=== PATIENT | female | born 1970 | race American Indian/Alaskan Native ===

== ENCOUNTER 2017-05-21 09:22 | Outpatient (CLI) | payer BC ==
[2017-05-21 09:57] LABS: Hematocrit 41.9 % (30.3-42.9); Hemoglobin 13.6 gm/dl (10.1-14.3); Mean Corpuscular HGB Conc 33 % (30-34); Mean Corpuscular Hemoglobin 27 pg (28-32); Mean Corpuscular Volume 83 fl (79-97); Platelet Count 234 K/mm3 (140-440); Red Blood Count 5.08 M/mm3 (3.65-5.03); Red Cell Distribution Width 12.7 % (13.2-15.2); White Blood Count 7.2 K/mm3 (4.5-11.0)
[2017-05-21 10:20] LABS: Alanine Aminotransferase 26 units/L (7-56); Albumin 3.9 g/dL (3.9-5); Albumin/Globulin Ratio 1.2 %; Alkaline Phosphatase 76 units/L (35-129); Anion Gap 15 mmol/L; BUN/Creatinine Ratio 36; Blood Urea Nitrogen 18 mg/dL (7-17); Calcium 9.5 mg/dL (8.4-10.2); Carbon Dioxide 25 mmol/L (22-30); Chloride 104.4 mmol/L (98-107); Cholesterol 167 mg/dL (50-199); Glucose 94 mg/dL (65-100); HDL Cholesterol 61 mg/dL (40-59); LDL Cholesterol,Direct 95 mg/dL (50-130); Potassium 3.8 mmol/L (3.6-5.0); Sodium 141 mmol/L (137-145); Total Protein 7.2 g/dL (6.3-8.2); Triglycerides 56 mg/dL (2-149)
[2017-05-24 08:41] LABS: Vitamin D, 25-OH, Total 37 ng/mL (30-100)
== END 2017-05-21 09:23 | disposition home or self-care (01) ==
LOC: LAB 09:22
PROVIDERS: ATTEND Internal Medicine
DX: Z00.00 Encounter for general adult medical examination without abnormal findings (principal); E03.8 Other specified hypothyroidism; R79.89 Other specified abnormal findings of blood chemistry
CPT/HCPCS: 36415; 80053; 80061; 82306; 83036; 84439; 84443; 85027

== ENCOUNTER 2017-08-07 08:31 | Outpatient (CLI) | payer BC ==
--- NOTE | 2017-08-07 10:24 | Ultrasound Report ---
Pelvic ultrasound: Dysfunctional bleeding. Endovaginal and transabdominal imaging demonstrates an anteverted uterus measuring 3.4 x 4.1 x 6.7 cm. The myometrium is heterogeneous with a somewhat ill-defined area of hypoechogenicity posteriorly measuring 16 mm. The short segment of visualized endometrium has a thickness of 6.8 mm. The right ovary measures 19 mm and the left measures 20 mm. No free fluid noted. Impressions: 1. Small uterine fibroid. 2. Limited visualization of the endometrium with no obvious pathology.
== END 2017-08-07 08:32 | disposition home or self-care (01) ==
LOC: US 08:31
PROVIDERS: ATTEND Obstetrics & Gynecology
DX: Z01.419 Encounter for gynecological examination (general) (routine) without abnormal findings (principal); D25.9 Leiomyoma of uterus, unspecified
CPT/HCPCS: 76830; 76856

== ENCOUNTER 2018-11-09 08:07 | Outpatient (CLI) | payer BC ==
--- NOTE | 2018-11-09 10:41 | Ultrasound Report ---
ULTRASOUND PELVIC COMPLETE ULTRASOUND TRANSVAGINAL HISTORY: Intramural leiomyoma of uterus. COMPARISON: 08/07/17. TECHNIQUE: Transabdominal and transvaginal ultrasound with color doppler interrogation. FINDINGS: Uterus: The uterus is retroflexed. The uterus measures 6.5 x 3.3 x 2.9 cm. The previously described fibroid in the posterior wall the uterus has decreased slightly measuring 1.4 x 1.3 x 1.5 cm. This fibroid appears to have a small submucosal component but does not displace the endometrium. There is suggestion of an ill-defined hypoechoic fibroid in the anterior wall measuring 1.3 x 0.8 x 1.1 cm. This was not clearly seen on the previous exam. The small fibroid also appears to have a small submucosal component. Endometrium: 3.2 mm in thickness. No mass or fluid collection. Right ovary: 2.0 x 1.5 x 1.0 cm. No focal abnormality. Left ovary: 1.3 x 1.0 x 1.1 cm. No focal abnormality. No pelvic fluid or mass is identified. Normal color doppler interrogation. IMPRESSION: 2 small uterine fibroids are identified as outlined above. Mild endometrial atrophy. Normal ovaries.
== END 2018-11-09 08:08 | disposition home or self-care (01) ==
LOC: US 08:07
PROVIDERS: ATTEND Obstetrics & Gynecology
DX: D25.1 Intramural leiomyoma of uterus (principal); N85.8 Other specified noninflammatory disorders of uterus
CPT/HCPCS: 76830; 76856

== ENCOUNTER 2018-11-25 10:06 | Day surgery (SDC) | payer BC ==
--- NOTE | 2018-11-25 07:47 | Anesthesia Day of Surgery ---
<DALLIN MANN - Last Filed: 11/25/18 07:47> Anesthesia Day of Surgery - Day of Surgery Patient Examined: Yes Patient H&P Reviewed: Yes Patient is NPO: Yes Beta Blockers: No Cardiac Clearance: No Pulmonary Clearance: No <SOFYA ATKINSON - Last Filed: 11/25/18 11:02> Anesthesia Day of Surgery - Day of Surgery Patient Examined: Yes Patient H&P Reviewed: Yes Patient is NPO: Yes
--- NOTE | 2018-11-25 07:47 | Anesthesia Consultation ---
<DALLIN MANN - Last Filed: 11/25/18 07:47> Anesthesia Consult and Med Hx Date of service: 11/25/18 - Pre-Operative Health Status ASA Pre-Surgery Classification: ASA2 - Pulmonary Hx Smoking: Yes Hx Asthma: Yes <SOFYA ATKINSON - Last Filed: 11/25/18 11:02> Anesthesia Consult and Med Hx - Airway Anesthetic Teeth Evaluation: Good ROM Head & Neck: Adequate Mental/Hyoid Distance: Adequate Mallampati Class: Class II Intubation Access Assessment: Probably Good - Pulmonary Exam CTA: Yes - Cardiac Exam Cardiac Exam: RRR - Pre-Operative Health Status ASA Pre-Surgery Classification: ASA2 Proposed Anesthetic Plan: MAC - Pulmonary Hx Smoking: Yes (quit 2012) Hx Asthma: Yes (last inhaler use >3m ago) - Gastrointestinal Hx Gastroesophageal Reflux Disease: Yes (occ, controlled )
[~2018-11-25 10:06] MED LIST: NACL 0.9% 1000 ML 1,000 ML IV SCH
[2018-11-25] MEDS ORDERED: VERSED ONE (11:23)
[2018-11-25] MEDS ORDERED: DIPRIVAN 10 MG/ML IV ONE ×2 (11:23)
[2018-11-25] MEDS ORDERED: XYLOCAINE 1% 20 mL ONE (11:24)
--- NOTE | 2018-11-25 11:48 | Operative Report ---
Operative Report Operative Report: Colonoscopy Procedure Note with Snare polypectomy Date of procedure: 11/25/2018 Endoscopist: Abilio Coffman Pre-op diagnosis: Screening for colon cancer Post-op diagnosis: Small colon polyp, internal hemorrhoids Anesthesia: MAC Complications: No immediate complications Estimated blood loss: minimal Procedure: After consent was obtained, the patient was placed in the left lateral decubitus position. The olympus colonoscope was inserted into the patient's rectum under direct vision, and advanced to the cecum without difficulty. The patient tolerated the procedure well. The views of the mucosa were good. The quality of prep was good. The patient's vital signs were monitored continuously throughout the procedure. Findings: There was an ~3 mm sessile polyp in the transverse colon. The polyp was removed and retrieved with cold snare polypectomy. Internal hemorrhoids were visualized on retroflexion view. Impression: 1. Small colon polyp removed with cold snare polypectomy as above 2. Internal hemorrhoids Recommendations: -repeat colonoscopy for surveillance in 5 years -follow-up in GI clinic as scheduled
--- NOTE | 2018-11-25 11:49 | Post Operative Note ---
Date of procedure: 11/25/18 Pre-op diagnosis: screening colonoscopy Post-op diagnosis: same (small colon polyp) Findings: 1. small colon polyp 2. Internal hemorrhoids Procedure: colonoscopy with snare polypectomy Anesthesia: MAC Surgeon: JUSTINA MA Estimated blood loss: minimal Pathology: list (transverse colon polyp) Specimen disposition: to lab Condition: stable Disposition: same day
[2018-11-25 12:54] VITALS: BP 113/80
== END 2018-11-25 10:07 | disposition home or self-care (01) ==
LOC: GIO 10:06
PROVIDERS: ATTEND Internal Medicine Gastroenterology
DX: Z12.11 Encounter for screening for malignant neoplasm of colon (principal); K63.5 Polyp of colon; K64.8 Other hemorrhoids; J45.909 Unspecified asthma, uncomplicated; K21.9 Gastro-esophageal reflux disease without esophagitis; Z98.51 Tubal ligation status; Z98.890 Other specified postprocedural states; Z79.899 Other long term (current) drug therapy; Z87.891 Personal history of nicotine dependence
CPT/HCPCS: 45385; 88305; J2250; J2704; J7030

== ENCOUNTER 2019-08-25 07:53 | Outpatient (CLI) | payer BC ==
[2019-08-25 08:18] LABS: Hematocrit 39.3 % (30.3-42.9); Hemoglobin 12.8 gm/dl (10.1-14.3); Mean Corpuscular HGB Conc 33 % (30-34); Mean Corpuscular Volume 81 fl (79-97); Platelet Count 244 K/mm3 (140-440); Red Blood Count 4.84 M/mm3 (3.65-5.03); Red Cell Distribution Width 13.2 % (13.2-15.2)
[2019-08-25 08:46] LABS: Alanine Aminotransferase 13 units/L (7-56); Albumin 4.2 g/dL (3.9-5); BUN/Creatinine Ratio 38; Blood Urea Nitrogen 23 mg/dL (7-17); Calcium 9.9 mg/dL (8.4-10.2); Chol/HDL Ratio 3.76 %; HDL Cholesterol 52 mg/dL (40-59); Hemolysis Index 2; LDL Cholesterol,Direct 137 mg/dL (50-130)
[2019-08-25 08:50] LABS: Free T4 (Free Thyroxine) 1.04 ng/dL (0.76-1.46)
== END 2019-08-25 07:54 | disposition home or self-care (01) ==
LOC: LAB 07:53
PROVIDERS: ATTEND Internal Medicine
DX: Z00.00 Encounter for general adult medical examination without abnormal findings (principal); R73.03 Prediabetes
CPT/HCPCS: 36415; 80053; 80061; 82652; 83036; 84439; 84443; 85027

== ENCOUNTER 2020-02-01 20:15 | Emergency (ER) | payer BC ==
[2020-02-01 20:57] VITALS: BP 147/84
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
[2020-02-01] MEDS ORDERED: CYCLOBENZAPRINE 10 MG TAB PO ONE (23:50)
[2020-02-01] MEDS ORDERED: IBUPROFEN 600 MG TAB PO ONE (23:50)
[2020-02-01] MEDS ORDERED: ACETAMINOPHEN 500 MG TAB PO ONE (23:50)
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
== END 2020-02-02 00:40 | disposition home or self-care (01) ==
LOC: ED 20:15
DX: S39.012A Strain of muscle, fascia and tendon of lower back, initial encounter (principal); M62.830 Muscle spasm of back; J45.909 Unspecified asthma, uncomplicated; Z79.899 Other long term (current) drug therapy; V89.2XXA Person injured in unspecified motor-vehicle accident, traffic, initial encounter; Y93.89 Activity, other specified; Y92.410 Unspecified street and highway as the place of occurrence of the external cause; Y99.8 Other external cause status
CPT/HCPCS: 72100; 99283

== ENCOUNTER 2020-06-28 07:54 | Outpatient (CLI) | payer BC ==
--- NOTE | 2020-06-28 08:51 | Mammography Report ---
DIGITAL SCREENING MAMMOGRAM WITH CAD, 06/28/2020 CLINICAL INFORMATION / INDICATION: Routine screening mammography. TECHNIQUE: Digital bilateral 2D mammography was obtained in the craniocaudal and mediolateral obliqu e projections. This examination was interpreted with the benefit of Computer-Aided Detection analysis . COMPARISON: 12/05/2014, 11/05/2018 FINDINGS: Breast Density: The breasts are almost entirely fatty. No dominant mass, suspicious calcifications, or architectural distortion in either breast. No interval change. IMPRESSION: No mammographic evidence of malignancy. Follow up recommendation: Routine yearly BI-RADS Category 1: Negative. A "normal" or negative report should not discourage follow up or biopsy of a clinically significant f inding. A written summary of these findings will be mailed to the patient. The patient will be entered into a mammography reporting system which will generate a reminder letter for the patient's next appointmen t at the appropriate interval. The [employer] recommends yearly mammograms starting at age 40 and continuing as l tex as a woman is in good health. Breast MRI is recommended for women with an approximate 20-25% or greater lifetime risk of breast cancer, including women with a strong family history of breast or ova keyon cancer or who have been treated for Hodgkin's disease. Signer Name: Niecy Braun MD Signed: 06/28/2020 8:47 AM Workstation Name: [id number]
== END 2020-06-28 07:55 | disposition home or self-care (01) ==
LOC: MAMMO 07:54
PROVIDERS: ATTEND Obstetrics & Gynecology
DX: Z12.31 Encounter for screening mammogram for malignant neoplasm of breast (principal)
CPT/HCPCS: 77067

== ENCOUNTER 2020-07-12 07:31 | Outpatient (CLI) | payer BC | END 2020-07-12 07:32 | disposition home or self-care (01) | LOC: LAB 07:31 | PROVIDERS: ATTEND Obstetrics & Gynecology | DX: N95.1 Menopausal and female climacteric states (principal) | CPT/HCPCS: 36415; 82670; 83001 ==

== ENCOUNTER 2020-07-18 08:49 | Outpatient (CLI) | payer BC ==
--- NOTE | 2020-07-18 12:31 | Ultrasound Report ---
ULTRASOUND PELVIS COMPLETE ULTRASOUND TRANSVAGINAL INDICATION / CLINICAL INFORMATION: Postcoital and contact bleeding. TECHNIQUE: Transabdominal and Transvaginal. Duplex Color Doppler used: Yes. COMPARISON: 11/09/2018 FINDINGS: The uterus is anteverted and measures 7.3 x 2.9 x 3.5 cm. The uterine parenchyma is heterogeneous wit h at least one fibroid identified in the posterior wall measuring 1 cm. No large submucosal fibroid. The endometrial stripe measures 6.4 mm. No endometrial fluid collection or obvious mass. No obvious c ervical abnormality. The right ovary measures 2.4 x 1.5 x 1.1 cm. The left ovary measures 2.4 x 1.3 x 1.2 cm. No ovarian c yst or mass is appreciated. No pelvic fluid collection. Images through the bladder are unremarkable. IMPRESSION: Stable mild uterine fibroid disease. The endometrium measures 6.4 mm which is minimally increased in a postmenopausal patient. This could represent endometrial hyperplasia. No discrete endometrial mass is appreciated. Normal ovaries. Signer Name: Rayshawn Mooney Jr, MD Signed: 07/18/2020 12:27 PM Workstation Name: [id number]
== END 2020-07-18 08:50 | disposition home or self-care (01) ==
LOC: US 08:49
PROVIDERS: ATTEND Obstetrics & Gynecology
DX: D25.9 Leiomyoma of uterus, unspecified (principal); N85.4 Malposition of uterus; N93.0 Postcoital and contact bleeding
CPT/HCPCS: 76830; 76856

== ENCOUNTER 2021-03-22 07:41 | Outpatient (CLI) | payer BC ==
[2021-03-22 08:06] LABS: Hematocrit 39.4 % (30.3-42.9); Hemoglobin 13.2 gm/dl (10.1-14.3); Mean Corpuscular HGB Conc 33 % (30-34); Mean Corpuscular Volume 82 fl (79-97); Platelet Count 241 K/mm3 (140-440); Red Blood Count 4.83 M/mm3 (3.65-5.03); Red Cell Distribution Width 13.1 % (13.2-15.2)
[2021-03-22 08:38] LABS: Alanine Aminotransferase 27 units/L (7-56); Albumin 4.2 g/dL (3.9-5); Blood Urea Nitrogen 14 mg/dL (7-17); Calcium 9.8 mg/dL (8.4-10.2); Chol/HDL Ratio 3.64 %; HDL Cholesterol 56 mg/dL (40-59); Hemolysis Index 8; LDL Cholesterol,Direct 140 mg/dL (50-130)
[2021-03-22 08:46] LABS: Free T4 (Free Thyroxine) 1.07 ng/dL (0.76-1.46)
[2021-03-22 08:49] LABS: BUN/Creatinine Ratio 23
[2021-03-25 13:02] LABS: Vitamin D, 25-OH, D2 <4 ng/mL
== END 2021-03-22 07:42 | disposition home or self-care (01) ==
LOC: LAB 07:41
PROVIDERS: ATTEND Nurse Practitioner Acute Care
DX: Z00.00 Encounter for general adult medical examination without abnormal findings (principal)
CPT/HCPCS: 36415; 80053; 80061; 82306; 83036; 84439; 84443; 85027